=== PATIENT | male | born 1990 | race Caucasian/White ===

== ENCOUNTER → 2016-12-23 | Outpatient (CLI) | payer SELFPAY ==
[~2016-12-23] MED LIST: ABILIFY 15MG TA15 MG PO; CATAPRES 0.1MG0.1 MG PO; CELEXA40 MG PO; CEPHALEXIN500 M1 PO; CLEOCIN HC150 MG/CAP PO; CLINDAMYCIN150 MG PO; KLONOPIN 0.5MG0.5 MG PO; NO HOME MEDICATIONS; NORCO 325 MG-51 TAB PO; PHENERGAN 25 TA25 MG PO; PROAIR HFA0.09 MG/AC IH; RISPERDAL2 MG PO; SEROQUEL400 MG PO; ZYRTEC 10MG10 MG PO
[2016-12-23 12:40] LABS: BASO # 0.1 (0.0-0.2); EOS # 0.4 (0.0-0.7); EOS % 6.7 % (0-4.0); GRAN % 35.3 % (42.2-75.2); HEMATOCRIT 41.9 % (42.0-52.0); HEMOGLOBIN 15.3 g/dl (13.5-18.0); LYMPH # 2.8 (1.2-3.4); LYMPH % 47.5 % (20.0-51.0); MEAN CELL VOLUME 92 fl (80.0-100.0); MEAN CORPUSCULAR HEMOGLOBIN 34 pg (27.0-31.0); MEAN CORPUSCULAR HGB CONC 37 g/dl (33.0-37.0); MEAN PLATELET VOLUME 9.7 fl (7.4-10.4); MONO # 0.6 (0.1-0.6); MONO % 9.5 % (1.7-9.3); PLATELET COUNT 200 K/mm3 (130-400); RED BLOOD COUNT 4.56 M/mm3 (4.20-5.60); REDCELL DISTRIBUTION WIDTH-CV 12.5 % (11.5-14.5); WHITE BLOOD COUNT 5.8 K/mm3 (4.8-10.8)
[2016-12-23 12:51] LABS: BILIRUBIN,TOTAL 0.6 mg/dL (0.0-1.0); CREATININE, serum 0.82 mg/dL (0.66-1.25); POTASSIUM 3.9 mmol/L (3.4-5.0); TOTAL PROTEIN 6.5 gm/dL (6.4-8.2)
== END ==
LOC: COL.LAB 12:01
DX: Z79.899 Other long term (current) drug therapy (principal)

== ENCOUNTER 2018-01-21 02:35 | Emergency (ER) | payer MEDICAID ==
[~2018-01-21] VITALS: Ht 162.6 cm; Wt 50.0 kg
[2018-01-21 02:39] VITALS: TEMP 98.7
[2018-01-21] MEDS ORDERED: DESYREL 100MG100 MG PO (03:09)
[2018-01-21] MEDS ORDERED: HALDOL 5MG/ML5 MG/ML IJ (03:10)
[2018-01-21 03:25] LABS: BASO # 0.1 (0.0-0.2); BASO % 0.5 % (0.0-2.0); EOS # 0.1 (0.0-0.7); EOS % 0.7 % (0-4.0); GRAN # 7.5 (1.4-6.5); GRAN % 74.4 % (42.2-75.2); HEMATOCRIT 41.7 % (42.0-52.0); HEMOGLOBIN 14.8 g/dl (13.5-18.0); LYMPH # 1.9 (1.2-3.4); LYMPH % 18.6 % (20.0-51.0); MEAN CELL VOLUME 94 fl (80.0-100.0); MEAN CORPUSCULAR HEMOGLOBIN 33 pg (27.0-31.0); MEAN CORPUSCULAR HGB CONC 36 g/dl (33.0-37.0); MEAN PLATELET VOLUME 10.4 fl (7.4-10.4); MONO # 0.6 (0.1-0.6); MONO % 5.5 % (1.7-9.3); PLATELET COUNT 212 K/mm3 (130-400); RED BLOOD COUNT 4.45 M/mm3 (4.20-5.60); REDCELL DISTRIBUTION WIDTH-CV 12.5 % (11.5-14.5)
[2018-01-21 03:37] LABS: ALANINE AMINOTRANSFERASE 32 U/L (21-72); ALBUMIN 3.9 gm/dL (3.5-5.0); ALKALINE PHOSPHATASE 59 U/L (50-136); ANION GAP 12 mmol/L (7-16); AST,SGOT 24 U/L (15-37); BILIRUBIN,TOTAL 0.6 mg/dL (0.0-1.0); BLOOD UREA NITROGEN 9 mg/dL (9-20); C-REACTIVE PROTEIN < 0.5 mg/dL (0.0-0.9); CALCIUM 8.5 mg/dL (8.4-10.2); CARBON DIOXIDE 26 mmol/L (22-30); CHLORIDE 101 mmol/L (98-107); CREATININE, serum 0.79 mg/dL (0.66-1.25); GLUCOSE 119 mg/dL (74-106); LIPASE 378 U/L (23-300); POTASSIUM 3.7 mmol/L (3.4-5.0); SODIUM 139 mmol/L (137-145); TOTAL PROTEIN 6.7 gm/dL (6.4-8.2)
[2018-01-21] MEDS ORDERED: CARAFATE 1GM1 G PO (05:01)
[2018-01-21] MEDS ORDERED: PHENERGAN25 MG RC (05:01)
[2018-01-21 06:32] VITALS: BP 129/90; PULSE 97
== END 2018-01-21 06:51 | disposition home or self-care (01) ==
LOC: COL.ER 02:35
PROVIDERS: Physician Assistant
DX: K29.70 Gastritis, unspecified, without bleeding (principal); F17.210 Nicotine dependence, cigarettes, uncomplicated; F12.10 Cannabis abuse, uncomplicated
CPT/HCPCS: C9113; J1200; J1630; J2060; J2405; J7030

== ENCOUNTER → 2018-06-29 | Outpatient (CLI) | payer MEDICAID ==
[~2018-06-29] MED LIST changes: +CARAFATE 1GM1 G PO; +DESYREL 100MG100 MG PO; +HALDOL 5MG/ML5 MG/ML IJ; +PHENERGAN25 MG RC
== END ==
LOC: COL.RAD 16:48
DX: M79.641 Pain in right hand (principal); W19.XXXA Unspecified fall, initial encounter